=== PATIENT | female | born 1990 | race Native Hawaiian/Other Pacific Islander ===

== ENCOUNTER 2025-04-13 19:32 | Emergency (ER) | payer MEDICAID ==
[~2025-04-13] VITALS: Ht 160 cm; Wt 79.5 kg
[2025-04-13 20:24] LABS: APPEARANCE,URINE CLEAR (CLEAR); GLUCOSE, URINE (UA) NEGATIVE (NEGATIVE); LEUKOCYTE ESTERASE ,URINE MODERATE (NEGATIVE); NITRATE,URINE NEGATIVE (NEGATIVE); OCCULT BLOOD,URINE SMALL (NEGATIVE); SPECIFIC GRAVITIY, URINE 1.032 (1.003-1.030)
[2025-04-13 20:45] LABS: SQUAMOUS EPITHELIAL CELL,UR Few /LPF (None Seen)
[2025-04-13] MEDS ORDERED: CEFU250T87 PO (22:20)
[2025-04-13] MEDS ORDERED: PHEN-846 PO (22:20)
[2025-04-13 22:30] VITALS: BP 117/68; PULSE 69; RESP 18; TEMP 97.3; O2SAT 100
== END 2025-04-14 01:37 | disposition home or self-care (01) ==
LOC: EMS 19:32
DX: N39.0 Urinary tract infection, site not specified (principal); R30.9 Painful micturition, unspecified; Z98.890 Other specified postprocedural states
CPT/HCPCS: 81001; 87077; 87086; 87186; 99283